=== PATIENT | female | born 1980 | race Caucasian/White ===

== ENCOUNTER 2019-01-20 18:01 | Outpatient (CLI) | payer BC ==
[~2019-01-20] VITALS: Ht 165.1 cm; Wt 72.2 kg
[2019-01-20 18:32] VITALS: BP 130/84
[2019-01-20] MEDS ORDERED: CALC300T5 PO (18:40)
[2019-01-20] MEDS ORDERED: PREN1TAB60 PO (18:40)
[2019-01-20 18:56] LABS: MICROSCOPIC INDICATED
[2019-02-10] MEDS ORDERED: HYDR-3240 PO (08:19)
[2019-02-10] MEDS ORDERED: IBUP-1222 PO (08:19)
== END 2019-01-20 19:14 | disposition home or self-care (01) ==
LOC: LDOP 18:01
PROVIDERS: ATTEND Obstetrics & Gynecology
DX: O09.523 Supervision of elderly multigravida, third trimester (principal); O26.893 Other specified pregnancy related conditions, third trimester; R10.9 Unspecified abdominal pain; Z3A.37 37 weeks gestation of pregnancy
CPT/HCPCS: 59025; 81001; 87086; 87147; 99211; G0463

== ENCOUNTER 2019-02-07 23:43 | Outpatient (CLI) | payer BC ==
[~2019-02-07] VITALS: Ht 165.1 cm; Wt 75.0 kg
[2019-02-08] VITALS: BP 146/87
== END 2019-02-08 01:30 | disposition home or self-care (01) ==
LOC: LDOP 23:43
PROVIDERS: ATTEND Obstetrics & Gynecology
DX: O26.893 Other specified pregnancy related conditions, third trimester (principal); R10.9 Unspecified abdominal pain; Z3A.39 39 weeks gestation of pregnancy
CPT/HCPCS: 59025; 99211; G0463